=== PATIENT | female | born 1940 | race Caucasian/White ===

== ENCOUNTER 2017-06-15 15:47 | Inpatient (IN) | payer MEDICARE, BC ==
[2017-06-15 17:51] LABS: ADD MAN DIFF? NO
[2017-06-15 17:54] LABS: WHITE BLOOD COUNT 12.6 10^3/ul (4.8-10.8)
[2017-06-15 17:54] LABS: BASOPHILS % 0.2 % (0.0-2.0); EOSINOPHILS # 0.1 10^3/ul (0.0-0.5); EOSINOPHILS % 0.8 % (0.0-7.0); HEMATOCRIT 42.4 % (37.0-47.0); HEMOGLOBIN 14.9 g/dl (12.0-16.0); LYMPHOCYTES # 1.3 10^3/ul (0.8-2.9); LYMPHOCYTES % 10.6 % (15.0-51.0); MEAN CORPUSCULAR HEMOGLOBIN 30.4 pg (29.0-33.0); MEAN CORPUSCULAR HGB CONC 35.1 g/dl (32.0-37.0); MEAN CORPUSCULAR VOLUME 86.5 fl (82.0-101.0); MEAN PLATELET VOLUME 9.9 fl (7.4-10.4); MONOCYTES % 7.9 % (0.0-11.0); NEUTROPHIL # 10.1 10^3/ul (1.6-7.5); NEUTROPHILS % 80.3 % (39.0-77.0); PLATELET COUNT 248 10^3/UL (140-415); RED CELL DISTRIBUTION WIDTH 13.4 % (11.5-14.5)
[2017-06-15 18:13] LABS: ADD UMIC YES; ALANINE AMINOTRANSFERASE 31 IU/L (13-69); ALBUMIN 3.9 g/dl (3.3-4.9); ALBUMIN/GLOBULIN RATIO 1.05; ALKALINE PHOSPHATASE 117 IU/L (42-121); ANION GAP 16 (8-16); ASPARTATE AMINO TRANSFERASE 37 IU/L (15-46); BLOOD UREA NITROGEN 21 mg/dl (7-20); CALCIUM 8.7 mg/dl (8.4-10.2); CARBON DIOXIDE 30 mmol/L (21-31); CHLORIDE 95 mmol/L (97-110); CREATINE KINASE 99 IU/L (23-200); GLUCOSE 105 mg/dl (70-220); POTASSIUM 3.4 mmol/L (3.5-5.1); SODIUM 138 mmol/L (135-144); TOTAL PROTEIN 7.6 g/dl (6.1-8.1); UR ASCORBIC ACID NEGATIVE (NEGATIVE); UR BACTERIA FEW /HPF (NONE SEEN); UR BILIRUBIN (Dip) NEGATIVE (NEGATIVE); UR BLOOD (Dip) 1+ mg/dL (NEGATIVE); UR CLARITY CLOUDY (CLEAR); UR COLOR YELLOW (YELLOW); UR GLUCOSE (Dip) NEGATIVE (NEGATIVE); UR KETONES (Dip) NEGATIVE (NEGATIVE); UR LEUKOCYTE ESTERASE (Dip) 3+ Leu/ul (NEGATIVE); UR NITRITE (Dip) NEGATIVE (NEGATIVE); UR RBC 11 /HPF (0-5); UR SPECIFIC GRAVITY (Dip) 1.014 (1.003-1.030); UR SQUAMOUS EPITHELIAL CELL FEW /HPF (FEW); UR TOTAL PROTEIN (Dip) 1+ mg/dl (NEGATIVE); UR UROBILINOGEN (Dip) 1+ mg/dL (NEGATIVE); UR WBC 36 /HPF (0-5)
[2017-06-15] MEDS: METHYLPREDNISOLONE 125 MG INJ IV (18:19)
[2017-06-15 18:21] LABS: CK INDEX 0.8; CK-MB 0.79 ng/ml (0.0-2.4)
[2017-06-15 18:27] LABS: B-TYPE NATRIURETIC PEPTIDE 1650 PG/ML (0-450); TROPONIN-I 0.052 ng/ml (0.00-0.12)
[2017-06-15] MEDS: CEFTRIAXONE 1 GM/50 ML (PMX) 50 ML IVPB (18:30)
[2017-06-15] MEDS: IPRATROPIUM (NEB) 0.5 MG/2.5 ML AMP NEB ×2 (19:55→19:56)
[2017-06-15] MEDS: ALBUTEROL 0.083% (NEB) 2.5 MG/3 ML AMP NEB ×2 (19:55→19:56)
[2017-06-15] MEDS ORDERED: ACETAMINOPHEN 325 MG TAB PO ×2 (20:00→23:00)
[2017-06-15] MEDS ORDERED: ONDANSETRON 4 MG INJ IV ×2 (20:00→23:00)
[2017-06-15] MEDS: FUROSEMIDE 40 MG INJ IV (20:28)
[2017-06-15] MEDS ORDERED: ZOLPIDEM 5 MG TAB PO (23:00)
[2017-06-15] MEDS ORDERED: MAGNESIUM HYDROXIDE 30ML CUP PO (23:00)
[2017-06-15] MEDS ORDERED: traMADol 50 MG TAB PO (23:00)
[2017-06-15] MEDS ORDERED: NACL 0.9% 3 ML SYG IV (23:00)
[2017-06-15] MEDS: ATORVASTATIN 10 MG TAB PO (23:51)
[2017-06-15] MEDS: DOCUSATE SODIUM 100 MG CAP PO (23:51)
[2017-06-15] MEDS: AMLODIPINE 5 MG TAB PO (23:52)
[2017-06-15] MEDS: APIXABAN 5 MG TABLET PO (23:56)
[2017-06-16] MEDS: POTASSIUM CHLORIDE (SR) 20 MEQ TAB PO ×3 (02:55→09:10)
[2017-06-16 03:51] LABS: ADD MAN DIFF? NO
[2017-06-16 04:12] LABS: WHITE BLOOD COUNT 7.3 10^3/ul (4.8-10.8)
[2017-06-16 04:12] LABS: ABNORMAL IP MESSAGE 1; BASOPHILS % 0.1 % (0.0-2.0); HEMATOCRIT 43.4 % (37.0-47.0); HEMOGLOBIN 14.9 g/dl (12.0-16.0); LYMPHOCYTES # 0.5 10^3/ul (0.8-2.9); LYMPHOCYTES % 6.3 % (15.0-51.0); MEAN CORPUSCULAR HEMOGLOBIN 29.8 pg (29.0-33.0); MEAN CORPUSCULAR HGB CONC 34.3 g/dl (32.0-37.0); MEAN CORPUSCULAR VOLUME 86.8 fl (82.0-101.0); MEAN PLATELET VOLUME 10.1 fl (7.4-10.4); MONOCYTE # 0.1 10^3/ul (0.3-0.9); MONOCYTES % 0.8 % (0.0-11.0); NEUTROPHIL # 6.7 10^3/ul (1.6-7.5); NEUTROPHILS % 92.4 % (39.0-77.0); PLATELET COUNT 273 10^3/UL (140-415); RED CELL DISTRIBUTION WIDTH 13.3 % (11.5-14.5)
[2017-06-16 04:14] LABS: ALANINE AMINOTRANSFERASE 27 IU/L (13-69); ALBUMIN 3.8 g/dl (3.3-4.9); ALBUMIN/GLOBULIN RATIO 1.02; ALKALINE PHOSPHATASE 106 IU/L (42-121); ANION GAP 19 (8-16); ASPARTATE AMINO TRANSFERASE 33 IU/L (15-46); BILIRUBIN,INDIRECT 0.8 mg/dl (0-1.1); BILIRUBIN,TOTAL 0.8 mg/dl (0.2-1.3); BLOOD UREA NITROGEN 23 mg/dl (7-20); CALCIUM 9.2 mg/dl (8.4-10.2); CARBON DIOXIDE 28 mmol/L (21-31); CHLORIDE 95 mmol/L (97-110); CREATININE 1.24 mg/dl (0.44-1.00); GLUCOSE 178 mg/dl (70-220); MAGNESIUM 1.7 mg/dl (1.7-2.5); PHOSPHORUS 2.8 mg/dl (2.5-4.9); SODIUM 139 mmol/L (135-144); TOTAL PROTEIN 7.5 g/dl (6.1-8.1)
[2017-06-16 04:37] LABS: POSITIVE DIFF @See below
[2017-06-16] MEDS: MAGNESIUM SULFATE 2 GM/50 ML 50 ML IVPB (05:56)
[2017-06-16] MEDS ORDERED: METHYLPREDNISOLONE (MEDROL) DOSE PACK PO (08:00)
[2017-06-16 08:55] LABS: MAGNESIUM 2.7 mg/dl (1.7-2.5)
[2017-06-16] MEDS ORDERED: SPIRONOLACTONE 25 MG TAB PO (09:00)
[2017-06-16] MEDS ORDERED: HYDROCHLOROTHIAZIDE 25 MG TAB PO (09:00)
[2017-06-16] MEDS ORDERED: AMLODIPINE 5 MG TAB PO (09:00)
[2017-06-16] MEDS ORDERED: APIXABAN 5 MG TABLET PO (09:00)
[2017-06-16] MEDS: APIXABAN 5 MG TABLET PO ×2 (09:11→21:55)
[2017-06-16] MEDS: AMLODIPINE 5 MG TAB PO ×2 (09:11→21:55)
[2017-06-16] MEDS: SOD CHLORIDE 0.9% 1,000 ML IV (09:26)
[2017-06-16] MEDS: METHYLPREDNISOLONE 4 MG TAB PO (09:26)
[2017-06-16] MEDS: GUAIFENESIN/DM (SR) TAB PO ×2 (09:29→21:55)
[2017-06-16 11:32] LABS: AADO2 Arterial 47.4 mmHg (7.0-24.0); Allen Test ACCEPTAB; Arterial Base Excess 2.8 mmol/L (-3.0-3); Arterial Blood Gas Oxygen Sat 93.1 mmHG (95.0-100.0); Arterial COHb 0.2 % (0.0-3.0); Arterial Fraction of Oxyhgb 92.6 % (93.0-99.0); Arterial HCO3 25.1 mmol/L (22.0-26.0); Arterial MetHb 0.3 % (0.0-1.5); Arterial Total Hemglobin 15.6 g/dl (12.0-18.0); Arterial pCO2 32.1 mmhg (35-45); MODE ROOM AIR; Site Right Radial
[2017-06-16] MEDS: ALBUTEROL/IPRATROPIUM (NEB) 3 ML AMP HHN ×3 (12:08→19:12)
[2017-06-16] MEDS: AZITHROMYCIN 250 MG TAB PO (14:15)
[2017-06-16 14:51] LABS: PHOSPHORUS 1.8 mg/dl (2.5-4.9)
[2017-06-16 14:51] LABS: ANION GAP 19 (8-16); BLOOD UREA NITROGEN 28 mg/dl (7-20); CALCIUM 9.3 mg/dl (8.4-10.2); CARBON DIOXIDE 24 mmol/L (21-31); CHLORIDE 99 mmol/L (97-110); CREATININE 1.38 mg/dl (0.44-1.00); GLUCOSE 136 mg/dl (70-220); MAGNESIUM 2.4 mg/dl (1.7-2.5); POTASSIUM 4.2 mmol/L (3.5-5.1); SODIUM 138 mmol/L (135-144)
[2017-06-16] MEDS ORDERED: CEFTRIAXONE 1 GM/50 ML (PMX) 50 ML IVPB (18:30)
[2017-06-16] MEDS ORDERED: ATORVASTATIN 10 MG TAB PO (21:00)
[2017-06-16] MEDS: ATORVASTATIN 10 MG TAB PO (21:54)
[2017-06-16] MEDS: NEUTRA-PHOS 250 MG PACKET PO (21:55)
[2017-06-17] MEDS: SODIUM PHOSPHATE 20 MEQ in SOD CHLORIDE 0.9% 250 ML IVPB (00:46)
[2017-06-17] MEDS: ALBUTEROL/IPRATROPIUM (NEB) 3 ML AMP HHN ×4 (02:09→19:40)
[2017-06-17] MEDS: METHYLPREDNISOLONE 4 MG TAB PO ×4 (07:30→21:30)
[2017-06-17] MEDS: SOD CHLORIDE 0.9% 1,000 ML IV (08:00)
[2017-06-17] MEDS: AZITHROMYCIN 250 MG TAB PO (09:12)
[2017-06-17] MEDS: AMLODIPINE 5 MG TAB PO ×2 (09:13→21:29)
[2017-06-17] MEDS: GUAIFENESIN/DM (SR) TAB PO ×2 (09:13→21:29)
[2017-06-17] MEDS: NEUTRA-PHOS 250 MG PACKET PO ×3 (09:13→21:30)
[2017-06-17] MEDS: APIXABAN 5 MG TABLET PO ×2 (09:13→21:29)
[2017-06-17 10:39] LABS: ADD MAN DIFF? NO
[2017-06-17 10:47] LABS: WHITE BLOOD COUNT 25.4 10^3/ul (4.8-10.8)
[2017-06-17 10:47] LABS: ABNORMAL IP MESSAGE 1; BASOPHIL # 0.1 10^3/ul (0.0-0.1); BASOPHILS % 0.2 % (0.0-2.0); HEMATOCRIT 38.8 % (37.0-47.0); HEMOGLOBIN 13.7 g/dl (12.0-16.0); LYMPHOCYTES # 0.6 10^3/ul (0.8-2.9); LYMPHOCYTES % 2.2 % (15.0-51.0); MEAN CORPUSCULAR HEMOGLOBIN 30.4 pg (29.0-33.0); MEAN CORPUSCULAR HGB CONC 35.3 g/dl (32.0-37.0); MEAN CORPUSCULAR VOLUME 86.2 fl (82.0-101.0); MEAN PLATELET VOLUME 9.8 fl (7.4-10.4); MONOCYTE # 1.3 10^3/ul (0.3-0.9); NEUTROPHIL # 23.3 10^3/ul (1.6-7.5); NEUTROPHILS % 91.9 % (39.0-77.0); NUCLEATED RED BLOOD CELLS% 0.1 /100WBC (0.0-0.0); PLATELET COUNT 351 10^3/UL (140-415); RED CELL DISTRIBUTION WIDTH 13.9 % (11.5-14.5)
[2017-06-17 10:57] LABS: POSITIVE DIFF @See below
[2017-06-17 10:58] LABS: ANION GAP 18 (8-16); BLOOD UREA NITROGEN 36 mg/dl (7-20); CALCIUM 9.1 mg/dl (8.4-10.2); CARBON DIOXIDE 24 mmol/L (21-31); CHLORIDE 101 mmol/L (97-110); CREATININE 1.25 mg/dl (0.44-1.00); GLUCOSE 133 mg/dl (70-220); MAGNESIUM 2.1 mg/dl (1.7-2.5); PHOSPHORUS 4.4 mg/dl (2.5-4.9); POTASSIUM 4.4 mmol/L (3.5-5.1); SODIUM 139 mmol/L (135-144)
[2017-06-17] MEDS: ATORVASTATIN 10 MG TAB PO (21:29)
[2017-06-18] MEDS: ALBUTEROL/IPRATROPIUM (NEB) 3 ML AMP HHN ×2 (01:26→08:14)
[2017-06-18] MEDS: METHYLPREDNISOLONE 4 MG TAB PO (06:47)
[2017-06-18] MEDS: SOD CHLORIDE 0.9% 1,000 ML IV (08:00)
[2017-06-18] MEDS: AZITHROMYCIN 250 MG TAB PO (09:04)
[2017-06-18] MEDS: NEUTRA-PHOS 250 MG PACKET PO (09:05)
[2017-06-18] MEDS: GUAIFENESIN/DM (SR) TAB PO (09:05)
[2017-06-18] MEDS: APIXABAN 5 MG TABLET PO (09:05)
[2017-06-18] MEDS: AMLODIPINE 5 MG TAB PO (09:05)
[2017-06-18 09:32] LABS: ADD MAN DIFF? NO
[2017-06-18 09:34] LABS: WHITE BLOOD COUNT 18.2 10^3/ul (4.8-10.8)
[2017-06-18 09:34] LABS: ABNORMAL IP MESSAGE 1; BASOPHILS % 0.1 % (0.0-2.0); HEMATOCRIT 40.9 % (37.0-47.0); HEMOGLOBIN 14.1 g/dl (12.0-16.0); LYMPHOCYTES # 0.5 10^3/ul (0.8-2.9); LYMPHOCYTES % 2.5 % (15.0-51.0); MEAN CORPUSCULAR HEMOGLOBIN 30.4 pg (29.0-33.0); MEAN CORPUSCULAR HGB CONC 34.5 g/dl (32.0-37.0); MEAN CORPUSCULAR VOLUME 88.1 fl (82.0-101.0); MEAN PLATELET VOLUME 9.5 fl (7.4-10.4); MONOCYTE # 0.6 10^3/ul (0.3-0.9); MONOCYTES % 3.4 % (0.0-11.0); NEUTROPHIL # 16.9 10^3/ul (1.6-7.5); NEUTROPHILS % 93.1 % (39.0-77.0); PLATELET COUNT 405 10^3/UL (140-415); RED BLOOD COUNT 4.64 10^6/ul (4.20-5.40)
[2017-06-18 09:36] LABS: POSITIVE DIFF @See below
[2017-06-18 09:59] LABS: ANION GAP 16 (8-16); BLOOD UREA NITROGEN 34 mg/dl (7-20); CALCIUM 9.1 mg/dl (8.4-10.2); CARBON DIOXIDE 27 mmol/L (21-31); CHLORIDE 102 mmol/L (97-110); CREATININE 1.13 mg/dl (0.44-1.00); GLUCOSE 111 mg/dl (70-220); MAGNESIUM 2.1 mg/dl (1.7-2.5); PHOSPHORUS 4.1 mg/dl (2.5-4.9); POTASSIUM 4.7 mmol/L (3.5-5.1); SODIUM 140 mmol/L (135-144)
[2017-06-18] MEDS ORDERED: METHYLPREDNISOLONE 4 MG TAB PO (21:00)
[2017-06-22 15:11] LABS: PROCALCITONIN 0.12 ng/mL (<0.10)
== END 2017-06-18 12:50 | disposition home or self-care (01) | DRG 202 ==
LOC: E/R 15:47 → MS4 22:39
DX: J20.8 Acute bronchitis due to other specified organisms (principal); N39.0 Urinary tract infection, site not specified; I50.9 Heart failure, unspecified; I11.0 Hypertensive heart disease with heart failure; J45.909 Unspecified asthma, uncomplicated; I48.2 Chronic atrial fibrillation; E78.5 Hyperlipidemia, unspecified; E55.9 Vitamin D deficiency, unspecified; Z79.02 Long term (current) use of antithrombotics/antiplatelets; Z85.42 Personal history of malignant neoplasm of other parts of uterus
CPT/HCPCS: 36600; 71045; 71046; 80048; 80053; 81001; 82550; 82553; 82803; 83735; 83880; 84100; 84145; 84484; 85025; 87086; 93005; 94640; 94664; 96374; 96375; 97161; 99285-25

== ENCOUNTER 2017-08-10 12:40 | Inpatient (IN) | payer MEDICARE, BC ==
[2017-08-10] MEDS ORDERED: BARIUM SULF 2% 450 ML BTL (BERRY SMOOTHIE) PO (15:00)
[2017-08-10] MEDS ORDERED: VANCOMYCIN IV PER PHARMACY XX (15:00)
[2017-08-10] MEDS ORDERED: ZOLPIDEM 5 MG TAB PO (15:30)
[2017-08-10] MEDS ORDERED: traMADol 50 MG TAB PO (15:30)
[2017-08-10] MEDS ORDERED: ACETAMINOPHEN 325 MG TAB PO (15:30)
[2017-08-10] MEDS ORDERED: NACL 0.9% 3 ML SYG IV (15:30)
[2017-08-10] MEDS ORDERED: ONDANSETRON 4 MG INJ IV (15:30)
[2017-08-10] MEDS ORDERED: HYDROCODONE/APAP (5/325) TAB PO (15:30)
[2017-08-10] MEDS: POTASSIUM CHLORIDE (SR) 10 MEQ TAB PO (15:56)
[2017-08-10] MEDS: FUROSEMIDE 20 MG INJ IV (15:56)
[2017-08-10 16:06] LABS: ADD MAN DIFF? NO
[2017-08-10 16:08] LABS: WHITE BLOOD COUNT 9.5 10^3/ul (4.8-10.8)
[2017-08-10 16:08] LABS: BASOPHIL # 0.1 10^3/ul (0.0-0.1); BASOPHILS % 0.6 % (0.0-2.0); EOSINOPHILS # 0.2 10^3/ul (0.0-0.5); EOSINOPHILS % 2.1 % (0.0-7.0); HEMATOCRIT 42.6 % (37.0-47.0); LYMPHOCYTES # 1.2 10^3/ul (0.8-2.9); LYMPHOCYTES % 12.6 % (15.0-51.0); MEAN CORPUSCULAR HEMOGLOBIN 30.8 pg (29.0-33.0); MEAN CORPUSCULAR HGB CONC 32.9 g/dl (32.0-37.0); MEAN CORPUSCULAR VOLUME 93.6 fl (82.0-101.0); MEAN PLATELET VOLUME 9.5 fl (7.4-10.4); MONOCYTE # 0.6 10^3/ul (0.3-0.9); MONOCYTES % 6.1 % (0.0-11.0); NEUTROPHIL # 7.4 10^3/ul (1.6-7.5); NEUTROPHILS % 78.3 % (39.0-77.0); PLATELET COUNT 297 10^3/UL (140-415); RED BLOOD COUNT 4.55 10^6/ul (4.20-5.40); RED CELL DISTRIBUTION WIDTH 14.6 % (11.5-14.5)
[2017-08-10 16:39] LABS: ALANINE AMINOTRANSFERASE 17 IU/L (13-69); ALBUMIN 3.9 g/dl (3.3-4.9); ALBUMIN/GLOBULIN RATIO 1.18; ALKALINE PHOSPHATASE 129 IU/L (42-121); ANION GAP 13 (8-16); ASPARTATE AMINO TRANSFERASE 25 IU/L (15-46); BILIRUBIN,INDIRECT 0.5 mg/dl (0-1.1); BILIRUBIN,TOTAL 0.5 mg/dl (0.2-1.3); BLOOD UREA NITROGEN 17 mg/dl (7-20); CALCIUM 9.7 mg/dl (8.4-10.2); CARBON DIOXIDE 32 mmol/L (21-31); CHLORIDE 101 mmol/L (97-110); CREATININE 1.29 mg/dl (0.44-1.00); GLUCOSE 82 mg/dl (70-220); MAGNESIUM 1.7 mg/dl (1.7-2.5); PHOSPHORUS 3.8 mg/dl (2.5-4.9); POTASSIUM 4.1 mmol/L (3.5-5.1); SODIUM 142 mmol/L (135-144); TOTAL PROTEIN 7.2 g/dl (6.1-8.1)
[2017-08-10 16:40] LABS: IRON 68 ug/dl (35-150)
[2017-08-10 16:49] LABS: % IRON SATURATION 23 % SAT (22-52); TOTAL IRON BINDING CAPACITY 302 ug/dl (241-421)
[2017-08-10 17:02] LABS: B-TYPE NATRIURETIC PEPTIDE 2210 PG/ML (0-450)
[2017-08-10] MEDS: VANCOMYCIN 1.75 GM in SOD CHLORIDE 0.9% 500 ML IVPB (17:04)
[2017-08-10 17:05] LABS: ADD UMIC YES; UR ASCORBIC ACID NEGATIVE (NEGATIVE); UR BILIRUBIN (Dip) NEGATIVE (NEGATIVE); UR BLOOD (Dip) 1+ mg/dL (NEGATIVE); UR CLARITY CLEAR (CLEAR); UR COLOR STRAW (YELLOW); UR GLUCOSE (Dip) NEGATIVE (NEGATIVE); UR KETONES (Dip) NEGATIVE (NEGATIVE); UR LEUKOCYTE ESTERASE (Dip) NEGATIVE Leu/ul (NEGATIVE); UR NITRITE (Dip) NEGATIVE (NEGATIVE); UR RBC 3 /HPF (0-5); UR SPECIFIC GRAVITY (Dip) 1.006 (1.003-1.030); UR TOTAL PROTEIN (Dip) NEGATIVE (NEGATIVE); UR UROBILINOGEN (Dip) NEGATIVE (NEGATIVE); UR WBC 0 /HPF (0-5)
[2017-08-10 17:29] LABS: FERRITIN 62.2 ng/ml (11.1-264.0)
[2017-08-10] MEDS: ATORVASTATIN 10 MG TAB PO (20:49)
[2017-08-10] MEDS: APIXABAN 5 MG TABLET PO (20:50)
[2017-08-11 06:42] LABS: ADD MAN DIFF? NO
[2017-08-11 06:46] LABS: BASOPHIL # 0.1 10^3/ul (0.0-0.1); EOSINOPHILS # 0.3 10^3/ul (0.0-0.5); HEMATOCRIT 38.4 % (37.0-47.0); HEMOGLOBIN 12.6 g/dl (12.0-16.0); LYMPHOCYTES # 1.1 10^3/ul (0.8-2.9); LYMPHOCYTES % 12.1 % (15.0-51.0); MEAN CORPUSCULAR HEMOGLOBIN 30.7 pg (29.0-33.0); MEAN CORPUSCULAR HGB CONC 32.8 g/dl (32.0-37.0); MEAN CORPUSCULAR VOLUME 93.4 fl (82.0-101.0); MEAN PLATELET VOLUME 9.6 fl (7.4-10.4); MONOCYTE # 0.7 10^3/ul (0.3-0.9); NEUTROPHIL # 7.2 10^3/ul (1.6-7.5); NEUTROPHILS % 76.4 % (39.0-77.0); PLATELET COUNT 249 10^3/UL (140-415); RED BLOOD COUNT 4.11 10^6/ul (4.20-5.40); RED CELL DISTRIBUTION WIDTH 14.6 % (11.5-14.5)
[2017-08-11 06:46] LABS: WHITE BLOOD COUNT 9.4 10^3/ul (4.8-10.8)
[2017-08-11 07:15] LABS: ANION GAP 13 (8-16); BLOOD UREA NITROGEN 20 mg/dl (7-20); CALCIUM 9.1 mg/dl (8.4-10.2); CARBON DIOXIDE 27 mmol/L (21-31); CHLORIDE 105 mmol/L (97-110); CREATININE 0.99 mg/dl (0.44-1.00); GLUCOSE 92 mg/dl (70-220); POTASSIUM 4.3 mmol/L (3.5-5.1); SODIUM 141 mmol/L (135-144)
[2017-08-11 08:20] LABS: ERYTHROCYTE SEDIMENTATION RATE 20 mm/Hr (0-30)
[2017-08-11] MEDS: DOCUSATE SODIUM 100 MG CAP PO (09:02)
[2017-08-11] MEDS: APIXABAN 5 MG TABLET PO ×2 (09:02→20:44)
[2017-08-11] MEDS: BARIUM SULF 2% 450 ML BTL (BERRY SMOOTHIE) PO (09:02)
[2017-08-11] MEDS: HYDROCHLOROTHIAZIDE 25 MG TAB PO (09:03)
[2017-08-11] MEDS: SPIRONOLACTONE 25 MG TAB PO (09:03)
[2017-08-11] MEDS: SOD CHLORIDE 0.9% 100 ML (11:30)
[2017-08-11] MEDS: IODIXANOL LOCM 100 ML BTL (11:30)
[2017-08-11] MEDS: FUROSEMIDE 20 MG INJ IV (11:58)
[2017-08-11] MEDS: POTASSIUM CHLORIDE (SR) 10 MEQ TAB PO (12:25)
[2017-08-11 13:00] LABS: OCCULT BLOOD STOOL NEGATIVE (NEGATIVE)
[2017-08-11] MEDS ORDERED: VANCOMYCIN IV PER PHARMACY XX (15:00)
[2017-08-11] MEDS: VANCOMYCIN 1.25 GM in SOD CHLORIDE 0.9% 250 ML IVPB (16:53)
[2017-08-11] MEDS ORDERED: VANCOMYCIN 1 GM (PMX) 250 ML IVPB (17:00)
[2017-08-11] MEDS ORDERED: VANCOMYCIN 1 GM 250 ML IVPB (17:00)
[2017-08-11] MEDS: ATORVASTATIN 10 MG TAB PO (20:49)
[2017-08-12 08:01] LABS: ADD MAN DIFF? NO
[2017-08-12 08:11] LABS: BASOPHIL # 0.1 10^3/ul (0.0-0.1); BASOPHILS % 0.4 % (0.0-2.0); EOSINOPHILS # 0.2 10^3/ul (0.0-0.5); EOSINOPHILS % 1.7 % (0.0-7.0); HEMATOCRIT 42.9 % (37.0-47.0); HEMOGLOBIN 14.3 g/dl (12.0-16.0); LYMPHOCYTES # 0.7 10^3/ul (0.8-2.9); LYMPHOCYTES % 5.3 % (15.0-51.0); MEAN CORPUSCULAR HEMOGLOBIN 30.7 pg (29.0-33.0); MEAN CORPUSCULAR HGB CONC 33.3 g/dl (32.0-37.0); MEAN CORPUSCULAR VOLUME 92.1 fl (82.0-101.0); MEAN PLATELET VOLUME 9.5 fl (7.4-10.4); MONOCYTE # 0.6 10^3/ul (0.3-0.9); MONOCYTES % 4.6 % (0.0-11.0); NEUTROPHIL # 11.9 10^3/ul (1.6-7.5); NEUTROPHILS % 87.6 % (39.0-77.0); PLATELET COUNT 305 10^3/UL (140-415); RED BLOOD COUNT 4.66 10^6/ul (4.20-5.40)
[2017-08-12 08:11] LABS: WHITE BLOOD COUNT 13.6 10^3/ul (4.8-10.8)
[2017-08-12 08:35] LABS: ANION GAP 12 (8-16); BLOOD UREA NITROGEN 19 mg/dl (7-20); CALCIUM 9.4 mg/dl (8.4-10.2); CARBON DIOXIDE 32 mmol/L (21-31); CHLORIDE 100 mmol/L (97-110); GLUCOSE 111 mg/dl (70-220); MAGNESIUM 1.4 mg/dl (1.7-2.5); PHOSPHORUS 3.3 mg/dl (2.5-4.9); POTASSIUM 3.9 mmol/L (3.5-5.1); SODIUM 140 mmol/L (135-144)
[2017-08-12] MEDS: APIXABAN 5 MG TABLET PO ×2 (09:35→20:08)
[2017-08-12] MEDS: SPIRONOLACTONE 25 MG TAB PO ×2 (09:35→09:38)
[2017-08-12] MEDS: DOCUSATE SODIUM 100 MG CAP PO (09:35)
[2017-08-12] MEDS: POTASSIUM CHLORIDE (SR) 10 MEQ TAB PO (09:35)
[2017-08-12] MEDS: FUROSEMIDE 20 MG INJ IV (09:38)
[2017-08-12] MEDS: VANCOMYCIN 1.25 GM in SOD CHLORIDE 0.9% 250 ML IVPB (16:48)
[2017-08-12 19:17] LABS: OCCULT BLOOD STOOL NEGATIVE (NEGATIVE)
[2017-08-12] MEDS: ATORVASTATIN 10 MG TAB PO (20:08)
[2017-08-13] MEDS: FUROSEMIDE 20 MG TAB PO (05:40)
[2017-08-13 08:21] LABS: ADD MAN DIFF? NO
[2017-08-13 08:29] LABS: BASOPHIL # 0.1 10^3/ul (0.0-0.1); BASOPHILS % 0.4 % (0.0-2.0); EOSINOPHILS # 0.7 10^3/ul (0.0-0.5); EOSINOPHILS % 5.3 % (0.0-7.0); HEMATOCRIT 43.3 % (37.0-47.0); HEMOGLOBIN 14.5 g/dl (12.0-16.0); LYMPHOCYTES # 0.7 10^3/ul (0.8-2.9); LYMPHOCYTES % 5.3 % (15.0-51.0); MEAN CORPUSCULAR HEMOGLOBIN 31.1 pg (29.0-33.0); MEAN CORPUSCULAR HGB CONC 33.5 g/dl (32.0-37.0); MEAN CORPUSCULAR VOLUME 92.9 fl (82.0-101.0); MEAN PLATELET VOLUME 9.6 fl (7.4-10.4); MONOCYTE # 0.8 10^3/ul (0.3-0.9); MONOCYTES % 5.6 % (0.0-11.0); NEUTROPHIL # 11.2 10^3/ul (1.6-7.5); PLATELET COUNT 305 10^3/UL (140-415); RED BLOOD COUNT 4.66 10^6/ul (4.20-5.40)
[2017-08-13 08:29] LABS: WHITE BLOOD COUNT 13.5 10^3/ul (4.8-10.8)
[2017-08-13 08:48] LABS: ANION GAP 14 (8-16); BLOOD UREA NITROGEN 20 mg/dl (7-20); CALCIUM 9.5 mg/dl (8.4-10.2); CARBON DIOXIDE 33 mmol/L (21-31); CHLORIDE 101 mmol/L (97-110); CREATININE 1.06 mg/dl (0.44-1.00); GLUCOSE 105 mg/dl (70-220); MAGNESIUM 1.4 mg/dl (1.7-2.5); PHOSPHORUS 3.7 mg/dl (2.5-4.9); POTASSIUM 4.1 mmol/L (3.5-5.1); SODIUM 144 mmol/L (135-144)
[2017-08-13] MEDS ORDERED: FUROSEMIDE 20 MG TAB PO (09:00)
[2017-08-13] MEDS: DOCUSATE SODIUM 100 MG CAP PO (09:25)
[2017-08-13] MEDS: APIXABAN 5 MG TABLET PO (09:25)
[2017-08-13] MEDS: MAG SULFATE 2GM IN 50 ML IVPB (09:26)
[2017-08-13] MEDS ORDERED: MAGNESIUM SULFATE 3 GM in DEXTROSE 5% 100 ML IVPB (10:00)
[2017-08-13] MEDS ORDERED: MAGNESIUM SULFATE 1 GM/D5W 100 ML IVPB (10:00)
[2017-08-16 12:13] LABS: RENIN, PLASMA 3.77 ng/mL/h (0.25-5.82)
[2017-08-16 16:46] LABS: ALDOSTERONE 9 ng/dL
== END 2017-08-13 11:30 | disposition home or self-care (01) | DRG 300 ==
LOC: MS3 12:40 → MS4 08-12 01:40
DX: I87.2 Venous insufficiency (chronic) (peripheral) (principal); I48.92 Unspecified atrial flutter; I10 Essential (primary) hypertension; E78.5 Hyperlipidemia, unspecified; I48.91 Unspecified atrial fibrillation; Z85.89 Personal history of malignant neoplasm of other organs and systems; Z92.3 Personal history of irradiation; R19.5 Other fecal abnormalities; E27.8 Other specified disorders of adrenal gland; Z79.01 Long term (current) use of anticoagulants
CPT/HCPCS: 71045; 74177; 80048; 80053; 81001; 82088; 82270; 82533; 82607; 82728; 83540; 83735; 83835; 83880; 84100; 84244; 84443; 85025; 85651; 87040; 87081; 87086; 93005; 93306; 93970

== ENCOUNTER → 2017-11-07 | Outpatient (CLI) | payer MEDICARE, BC | END | disposition home or self-care (01) | LOC: HKI 09:37 | DX: M17.11 Unilateral primary osteoarthritis, right knee (principal); I10 Essential (primary) hypertension; Z79.02 Long term (current) use of antithrombotics/antiplatelets | CPT/HCPCS: 20610; 73562-50 ==